=== PATIENT | male | born 1965 | race Caucasian/White ===

== ENCOUNTER 2023-06-10 11:10 | Emergency (ER) | payer BC ==
[~2023-06-10] VITALS: Ht 177.8 cm; Wt 89.1 kg
[2023-06-10] MEDS ORDERED: TRELEGY ELLIPT1 EAC1 IH (11:30)
[2023-06-10] MEDS ORDERED: BUSPAR 15MG TAB15 MG PO (11:30)
[2023-06-10] MEDS ORDERED: ESCITALOPRAM20 MG PO (11:30)
[2023-06-10] MEDS ORDERED: ATORVASTATIN CA10 MG PO (11:31)
[2023-06-10] MEDS ORDERED: SINGULAIR PO (11:31)
[2023-06-10] MEDS ORDERED: LEVOXYL0.088 MG PO (11:31)
[2023-06-10] MEDS ORDERED: LINZESS145 MCG PO (11:32)
[2023-06-10 11:59] LABS: BASO # 0.03 K/mm3 (0.02-0.10); EOS # 0.11 K/mm3 (0.04-0.40); EOS % 2.7 % (0.0-4.0); HEMATOCRIT 42.7 % (42.0-52.0); HEMOGLOBIN 14.1 g/dL (13.5-18.0); LYMPH# 0.96 K/mm3 (1.50-4.00); MEAN CELL VOLUME 84 fl (78-100); MEAN CORPUSCULAR HEMOGLOBIN 28 pg (27-31); MEAN CORPUSCULAR HGB CONC 33 g/dL (33-37); MEAN PLATELET VOLUME 8.5 fl (7.4-10.4); PLATELET COUNT 251 K/mm3 (130-400); RED BLOOD COUNT 5.06 M/mm3 (4.20-5.60); RED CELL DISTRIBUTION WIDTH 12.8 % (11.5-14.5)
[2023-06-10 12:05] LABS: SODIUM 139 mmol/L (136-145)
[2023-06-10 12:06] LABS: ALBUMIN 4.4 g/dL (3.5-5.0)
[2023-06-10 12:07] LABS: CALCIUM 9.9 mg/dL (8.3-10.5)
[2023-06-10 12:09] LABS: CARBON DIOXIDE 21 mmol/L (22-29); GLUCOSE 106 mg/dL (75-110)
[2023-06-10 12:10] LABS: TOTAL BILIRUBIN 0.6 mg/dL (0.2-1.2)
[2023-06-10 12:14] LABS: AST-SGOT 19 U/L (5-34)
[2023-06-10 12:16] LABS: ALT/SGPT 39 U/L (0-55)
[2023-06-10 12:24] LABS: TROPONIN-I < 0.030 ng/mL (0.00-0.033)
[2023-06-10 13:56] VITALS: BP 142/101
== END 2023-06-10 13:55 | disposition home or self-care (01) ==
LOC: ED 11:10
PROVIDERS: Nurse Practitioner Family
DX: R42 Dizziness and giddiness (principal); R07.89 Other chest pain; Z95.0 Presence of cardiac pacemaker; Z95.4 Presence of other heart-valve replacement

== ENCOUNTER 2023-08-14 07:50 | Emergency (ER) | payer OTHER, BC ==
[~2023-08-14] VITALS: Ht 177.8 cm; Wt 89.1 kg
[~2023-08-14 07:50] MED LIST: ATORVASTATIN CA10 MG PO; BUSPAR 15MG TAB15 MG PO; ESCITALOPRAM20 MG PO; LEVOXYL0.088 MG PO; LINZESS145 MCG PO; SINGULAIR PO; TRELEGY ELLIPT1 EAC1 IH
[2023-08-14] MEDS ORDERED: LORAZEPAM0.5 M1 PO (07:56)
[2023-08-14 09:45] VITALS: BP 151/111
== END 2023-08-14 09:40 | disposition home or self-care (01) ==
LOC: ED 07:50
DX: S61.215A Laceration without foreign body of left ring finger without damage to nail, initial encounter (principal); S61.217A Laceration without foreign body of left little finger without damage to nail, initial encounter; W26.8XXA Contact with other sharp object(s), not elsewhere classified, initial encounter; Y92.89 Other specified places as the place of occurrence of the external cause; Y99.0 Civilian activity done for income or pay
CPT/HCPCS: 90715